=== PATIENT | male | born 1965 | race Caucasian/White ===

== ENCOUNTER 2019-04-15 12:08 | Emergency (ER) | payer OTHER ==
[~2019-04-15] VITALS: Ht 182.9 cm; Wt 108.9 kg
[2019-04-15 12:08] VITALS: BP 153/96
[2019-04-15] MEDS ORDERED: DEPAKOTE 250MG250 M1 PO (12:21)
[2019-04-15] MEDS ORDERED: NEXIUM40 MG PO (12:21)
[2019-04-15] MEDS ORDERED: FLONASE 0.05%50 MCG NASAL (12:21)
[2019-04-15] MEDS ORDERED: BENZTROPINE MES1 MG PO (12:22)
[2019-04-15] MEDS ORDERED: QUETIAPINE FUM100 MG PO (12:22)
[2019-04-15] MEDS ORDERED: GAVILAX17 GM PO (12:22)
[2019-04-15] MEDS ORDERED: ATIVAN0.5 MG PO (12:23)
[2019-04-15] MEDS ORDERED: RISPERDAL2 MG PO (12:23)
[2019-04-15] MEDS ORDERED: DEPAKOTE500 MG PO (12:23)
[2019-04-15] MEDS ORDERED: TYLENOL325 MG PO (12:24)
[2019-04-15] MEDS ORDERED: MINTOX PLUS TA1 EACH PO (12:24)
== END 2019-04-15 13:30 ==
LOC: ER 12:08
DX: S09.90XA Unspecified injury of head, initial encounter (principal); W01.198A Fall on same level from slipping, tripping and stumbling with subsequent striking against other object, initial encounter; Y93.02 Activity, running; Y92.89 Other specified places as the place of occurrence of the external cause; Y99.8 Other external cause status